=== PATIENT | male | born 1955 | race Caucasian/White ===

== ENCOUNTER 2021-12-14 15:48 | Outpatient (CLI) | payer BC, SELFPAY | END 2021-12-14 15:49 | disposition home or self-care (01) | LOC: CHSOUTPT 15:59 | PROVIDERS: Visit Provider Specialist | DX: D22.5 Melanocytic nevi of trunk (principal) | CPT/HCPCS: 88305 ==

== ENCOUNTER 2024-02-13 12:39 | Outpatient (CLI) | payer BC, MEDICARE, SELFPAY | END 2024-02-13 12:40 | disposition home or self-care (01) | LOC: CHSLAB 12:44 | PROVIDERS: PCP Specialist; Visit Provider Specialist | DX: D22.5 Melanocytic nevi of trunk (principal) | CPT/HCPCS: 88305 ==